=== PATIENT | male | born 1960 | race Caucasian/White ===

== ENCOUNTER 2025-10-04 12:30 | Observation (INO) ==
--- NOTE | 2025-10-04 12:53 | Emergency Department Note ---
Impression & Plan Hypertensive emergency, Vertigo ED Provider Note NAME: ANDREA OLIVIA AGE: 65 SEX: M : 1960 ARRIVES VIA: Walk-In INFORMANT: Patient, ED PROVIDER(S): Flaquito Trent DO CHIEF COMPLAINT: Dizziness HPI: The patient is a 65-year-old male who has a history of hypertension who presented to the emergency department for an evaluation of dizziness. The patient's been experiencing dizziness episodes over the course the last week. He denies having any fever. He denies having any neck pain or neck stiffness. The patient has not seen his family doctor for the symptoms. He states currently he is not having very severe symptoms. He states sometimes when it hits him he has difficulty walking and feels though he is off balance. ROS: See above HPI for pertinent positives & negatives. A total of 10 systems reviewed and were otherwise negative. PAST MEDICAL HISTORY: See Below PAST SURGICAL HISTORY: See Below FAMILY HISTORY: See Below SOCIAL HISTORY: See Below HOME MEDICATIONS: See Below ALLERGIES: See Below VITALS: See Below PHYSICAL EXAMINATION: GENERAL: Patient is awake alert in no acute distress patient is resting comfortably and showing no signs of anxiety EYES: The conjunctivae are clear. The pupils are round and reactive. EARS, NOSE, MOUTH AND THROAT: The nose is without any evidence of any deformity. NECK: The neck is nontender and supple. RESPIRATORY: Normal respiratory effort is noted there is no evidence of wheezing rhonchi or rales CARDIOVASCULAR: Regular rate and rhythm noted there no murmurs rubs or gallops normal S1 normal S2. GASTROINTESTINAL: The abdomen is soft. Abdomen is nontender. MUSCULOSKELETAL/EXTREMITIES: There is no evidence of gross deformity full range of motion is noted in the hips and shoulders. SKIN: There is no obvious evidence of any rash. There are no petechiae, pallor or cyanosis noted. NEUROLOGIC: Patient is awake alert and oriented x3 strength is symmetric patellar reflexes are 2+ bilaterally. [id number] was symmetric. The patient does have a slight resting tremor. Speech was clear. There is no facial droop. There was no nystagmus elicited. MEDICAL DECISION MAKING: The patient is a 65-year-old male who presented to the emergency department for dizziness and vertigo. The patient describes symptoms that could be consistent with vertebrobasilar insufficiency or possible posterior circulation TIA. The patient did not have any focal neurologic deficits on my physical exam. He has had no ongoing symptoms for greater than 24 hours so he was not made a stroke alert upon arrival. He was found to have very elevated blood pressure. He was initially treated with IV labetalol in the emergency department. He was then switched to IV nicardipine. The patient's symptoms remained stable. Blood pressure continued to improve while in the emergency department. I discussed the patient's laboratory and radiographic studies with him. Given his findings I discussed his condition with the on-call [facility]. They have agreed to evaluate the patient in the emergency department for further management and disposition. Triage Nursing notes reviewed. Prior medical records reviewed Vital Signs: reviewed and remarkable for elevated blood pressure. Differential diagnosis: Benign positional vertigo, dehydration, hypovolemia, anemia, tumor, infection, hypoglycemia, electrolyte abnormalities, cardiac sources, intracerebral event, toxicologic, neurologic, as well as other pathologies. ER treatment provided: See below Diagnostics interpreted by me: ECG: EKG was obtained in the emergency department. My interpretation is normal sinus rhythm at 64 bpm. There was no ectopy. Anterior Q waves are noted. There was no acute ST segment abnormalities noted. QTc was 422 ms. Cardiac Monitoring: An order was placed for continuous cardiac monitoring. The monitor shows a rate of 66 bpm with sinus rhythm. Laboratory studies: As stated above and show below. Imaging studies: See below. Radiographic imaging was reviewed by myself Consultation(s): I discussed this case with Luci who is on-call for the [facility] group. ED COURSE: Procedures: none Critical Care: I have personally spent greater than 45 minutes of critical care time in the direct management of this patient. This includes bedside care, interpretation of diagnostic studies, and testing, discussion with consultants, patient, and family members, and other required patient management activities. This 45 minutes is in excess of all separately billable procedures. Past Med/Surg History Problem List (Updated 10/04/25 @ 15:07 by Flaquito Trent DO) Vertigo (Acute) Hypertensive emergency (Acute) Hypertension Surgical History H/O colonoscopy 2019 - [facility] - normal findings. S/P tonsillectomy and adenoidectomy age 9 Family History Sister Breast cancer, Onset Age: 75 Father Esophageal cancer Hypertension Mother Hypertension Brother Aplastic anemia mid 70s Denies family history of Ovarian cancer Prostate cancer Myocardial infarction Colorectal cancer Social History Smoking Status: Never smoker Tobacco Type: Smokeless Tobacco (Dip or Chew) Age Started Using Tobacco: 22; Age Quit Using Tobacco: 54; Cigarettes Per Day: no smoking only used to chew tobacco; Second Hand Exposure: No; Do You Dip or Chew Tobacco: No; Hx Alcohol Use: Yes Hx Substance Use: No Preferred Language: Beninese Communication Ability: Effective Visual Impairment: Limited Hearing Ability: Normal Beliefs That Will Affect Care: None marital status: Current Living Situation: Spouse current occupational status: employed current occupation: [employer] Feels Safe at Home: Yes Childhood Exposure to Second-Hand Smoke: Yes caffeine: Yes (coffee regularly) during the past year weight has: remained stable Dental Care, Regularly: Yes Physical Activity Frequency: Daily Seatbelt Use: always Sunscreen Use: Yes Allergies Allergies Allergy/AdvReac Type Severity Reaction Status Date / Time No Known Drug Allergies Allergy Unknown Verified 04/06/25 08:17 Home Meds Previous Rx's Medication Instructions Recorded lisinopril 20 mg tablet 20 mg PO DAILY #90 tabs 01/06/25 Results & Data (ED) Vital Signs Vital Signs - 24 hr 10/04/25 12:30 10/04/25 12:32 10/04/25 12:50 Temperature 36.6 C Temperature Source Temporal Artery Scan Pulse Rate 79 Pulse Rate [Right Finger] 68 68 Pulse Rate from SpO2 Sensor Respiratory Rate 20 18 18 Respiratory Effort / Characteristics Non-Labored Spontaneous Respiratory Depth Normal Respiratory Pattern Regular Blood Pressure 257/131 H Blood Pressure [Right Arm] 250/116 H 215/126 H Blood Pressure Mean 173 Blood Pressure Mean [Right Arm] 160 155 Pulse Oximetry 95 97 97 Oxygen Delivery Method Room Air Room Air Room Air Sepsis Recent Fever Within 48 Hours No Sepsis New/Unexplained Change in Mental Status N/A Sepsis Action Taken by Nursing No Action Required 10/04/25 13:03 10/04/25 13:05 10/04/25 13:09 Temperature Temperature Source Pulse Rate 67 67 68 Pulse Rate [Right Finger] Pulse Rate from SpO2 Sensor 66 Respiratory Rate 11 L Respiratory Effort / Characteristics Respiratory Depth Respiratory Pattern Blood Pressure 250/138 H Blood Pressure [Right Arm] Blood Pressure Mean Blood Pressure Mean [Right Arm] Pulse Oximetry 95 Oxygen Delivery Method Sepsis Recent Fever Within 48 Hours Sepsis New/Unexplained Change in Mental Status Sepsis Action Taken by Nursing 10/04/25 13:09 10/04/25 13:11 10/04/25 13:11 Temperature Temperature Source Pulse Rate 70 Pulse Rate [Right Finger] Pulse Rate from SpO2 Sensor 70 Respiratory Rate 13 Respiratory Effort / Characteristics Respiratory Depth Respiratory Pattern Blood Pressure 207/119 H 207/119 H Blood Pressure [Right Arm] Blood Pressure Mean 165 165 Blood Pressure Mean [Right Arm] Pulse Oximetry 96 Oxygen Delivery Method Sepsis Recent Fever Within 48 Hours Sepsis New/Unexplained Change in Mental Status Sepsis Action Taken by Nursing 10/04/25 13:11 10/04/25 13:11 10/04/25 13:11 Temperature Temperature Source Pulse Rate Pulse Rate [Right Finger] Pulse Rate from SpO2 Sensor Respiratory Rate Respiratory Effort / Characteristics Respiratory Depth Respiratory Pattern Blood Pressure 207/119 H 207/119 H 207/119 H Blood Pressure [Right Arm] Blood Pressure Mean 165 165 165 Blood Pressure Mean [Right Arm] Pulse Oximetry Oxygen Delivery Method Sepsis Recent Fever Within 48 Hours Sepsis New/Unexplained Change in Mental Status Sepsis Action Taken by Nursing 10/04/25 13:16 10/04/25 13:16 10/04/25 13:16 Temperature Temperature Source Pulse Rate Pulse Rate [Right Finger] Pulse Rate from SpO2 Sensor Respiratory Rate Respiratory Effort / Characteristics Respiratory Depth Respiratory Pattern Blood Pressure 215/126 H 215/126 H 215/126 H Blood Pressure [Right Arm] Blood Pressure Mean 167 167 167 Blood Pressure Mean [Right Arm] Pulse Oximetry Oxygen Delivery Method Sepsis Recent Fever Within 48 Hours Sepsis New/Unexplained Change in Mental Status Sepsis Action Taken by Nursing 10/04/25 13:16 10/04/25 13:16 10/04/25 13:18 Temperature Temperature Source Pulse Rate 62 Pulse Rate [Right Finger] Pulse Rate from SpO2 Sensor 60 Respiratory Rate 13 Respiratory Effort / Characteristics Respiratory Depth Respiratory Pattern Blood Pressure 215/126 H 215/126 H Blood Pressure [Right Arm] Blood Pressure Mean 167 167 Blood Pressure Mean [Right Arm] Pulse Oximetry 96 Oxygen Delivery Method Sepsis Recent Fever Within 48 Hours Sepsis New/Unexplained Change in Mental Status Sepsis Action Taken by Nursing 10/04/25 13:21 10/04/25 13:30 10/04/25 13:30 Temperature Temperature Source Pulse Rate 62 61 Pulse Rate [Right Finger] Pulse Rate from SpO2 Sensor 60 61 Respiratory Rate 13 11 L Respiratory Effort / Characteristics Respiratory Depth Respiratory Pattern Blood Pressure 214/134 H Blood Pressure [Right Arm] Blood Pressure Mean 171 Blood Pressure Mean [Right Arm] Pulse Oximetry 94 94 Oxygen Delivery Method Sepsis Recent Fever Within 48 Hours Sepsis New/Unexplained Change in Mental Status Sepsis Action Taken by Nursing 10/04/25 13:30 10/04/25 13:30 10/04/25 13:30 Temperature Temperature Source Pulse Rate Pulse Rate [Right Finger] Pulse Rate from SpO2 Sensor Respiratory Rate Respiratory Effort / Characteristics Respiratory Depth Respiratory Pattern Blood Pressure 214/134 H 214/134 H 214/134 H Blood Pressure [Right Arm] Blood Pressure Mean 171 171 171 Blood Pressure Mean [Right Arm] Pulse Oximetry Oxygen Delivery Method Sepsis Recent Fever Within 48 Hours Sepsis New/Unexplained Change in Mental Status Sepsis Action Taken by Nursing 10/04/25 13:30 10/04/25 13:42 10/04/25 13:51 Temperature Temperature Source Pulse Rate 61 62 Pulse Rate [Right Finger] Pulse Rate from SpO2 Sensor 62 64 Respiratory Rate 14 13 Respiratory Effort / Characteristics Respiratory Depth Respiratory Pattern Blood Pressure 214/134 H Blood Pressure [Right Arm] Blood Pressure Mean 171 Blood Pressure Mean [Right Arm] Pulse Oximetry 95 94 Oxygen Delivery Method Sepsis Recent Fever Within 48 Hours Sepsis New/Unexplained Change in Mental Status Sepsis Action Taken by Nursing 10/04/25 14:00 10/04/25 14:00 10/04/25 14:00 Temperature Temperature Source Pulse Rate Pulse Rate [Right Finger] Pulse Rate from SpO2 Sensor Respiratory Rate Respiratory Effort / Characteristics Respiratory Depth Respiratory Pattern Blood Pressure 218/137 H 218/137 H 218/137 H Blood Pressure [Right Arm] Blood Pressure Mean 178 178 178 Blood Pressure Mean [Right Arm] Pulse Oximetry Oxygen Delivery Method Sepsis Recent Fever Within 48 Hours Sepsis New/Unexplained Change in Mental Status Sepsis Action Taken by Nursing 10/04/25 14:00 10/04/25 14:00 10/04/25 14:00 Temperature Temperature Source Pulse Rate 60 Pulse Rate [Right Finger] Pulse Rate from SpO2 Sensor 60 Respiratory Rate 18 Respiratory Effort / Characteristics Respiratory Depth Respiratory Pattern Blood Pressure 218/137 H 218/137 H Blood Pressure [Right Arm] Blood Pressure Mean 178 178 Blood Pressure Mean [Right Arm] Pulse Oximetry 95 Oxygen Delivery Method Sepsis Recent Fever Within 48 Hours Sepsis New/Unexplained Change in Mental Status Sepsis Action Taken by Nursing 10/04/25 14:30 10/04/25 14:30 10/04/25 14:30 Temperature Temperature Source Pulse Rate 63 Pulse Rate [Right Finger] Pulse Rate from SpO2 Sensor 63 Respiratory Rate 14 Respiratory Effort / Characteristics Respiratory Depth Respiratory Pattern Blood Pressure 249/136 H 249/136 H Blood Pressure [Right Arm] Blood Pressure Mean 168 168 Blood Pressure Mean [Right Arm] Pulse Oximetry 97 Oxygen Delivery Method Sepsis Recent Fever Within 48 Hours Sepsis New/Unexplained Change in Mental Status Sepsis Action Taken by Nursing 10/04/25 14:33 10/04/25 14:33 10/04/25 14:33 Temperature Temperature Source Pulse Rate 66 Pulse Rate [Right Finger] Pulse Rate from SpO2 Sensor Respiratory Rate Respiratory Effort / Characteristics Respiratory Depth Respiratory Pattern Blood Pressure 236/125 H 236/125 H 236/125 H Blood Pressure [Right Arm] Blood Pressure Mean 171 171 Blood Pressure Mean [Right Arm] Pulse Oximetry Oxygen Delivery Method Sepsis Recent Fever Within 48 Hours Sepsis New/Unexplained Change in Mental Status Sepsis Action Taken by Nursing 10/04/25 14:33 10/04/25 14:33 10/04/25 14:33 Temperature Temperature Source Pulse Rate Pulse Rate [Right Finger] Pulse Rate from SpO2 Sensor Respiratory Rate Respiratory Effort / Characteristics Respiratory Depth Respiratory Pattern Blood Pressure 236/125 H 236/125 H 236/125 H Blood Pressure [Right Arm] Blood Pressure Mean 171 171 171 Blood Pressure Mean [Right Arm] Pulse Oximetry Oxygen Delivery Method Sepsis Recent Fever Within 48 Hours Sepsis New/Unexplained Change in Mental Status Sepsis Action Taken by Nursing 10/04/25 14:33 10/04/25 14:42 10/04/25 14:45 Temperature Temperature Source Pulse Rate 64 60 Pulse Rate [Right Finger] Pulse Rate from SpO2 Sensor 66 60 Respiratory Rate 13 13 Respiratory Effort / Characteristics Respiratory Depth Respiratory Pattern Blood Pressure 213/120 H Blood Pressure [Right Arm] Blood Pressure Mean 153 Blood Pressure Mean [Right Arm] Pulse Oximetry 97 98 Oxygen Delivery Method Sepsis Recent Fever Within 48 Hours Sepsis New/Unexplained Change in Mental Status Sepsis Action Taken by Nursing 10/04/25 14:45 10/04/25 14:45 10/04/25 14:45 Temperature Temperature Source Pulse Rate Pulse Rate [Right Finger] Pulse Rate from SpO2 Sensor Respiratory Rate Respiratory Effort / Characteristics Respiratory Depth Respiratory Pattern Blood Pressure 213/120 H 213/120 H 213/120 H Blood Pressure [Right Arm] Blood Pressure Mean 153 153 153 Blood Pressure Mean [Right Arm] Pulse Oximetry Oxygen Delivery Method Sepsis Recent Fever Within 48 Hours Sepsis New/Unexplained Change in Mental Status Sepsis Action Taken by Nursing 10/04/25 14:45 10/04/25 14:45 10/04/25 14:51 Temperature Temperature Source Pulse Rate 59 L 63 Pulse Rate [Right Finger] Pulse Rate from SpO2 Sensor 60 64 Respiratory Rate 13 16 Respiratory Effort / Characteristics Respiratory Depth Respiratory Pattern Blood Pressure 213/120 H Blood Pressure [Right Arm] Blood Pressure Mean 153 Blood Pressure Mean [Right Arm] Pulse Oximetry 96 96 Oxygen Delivery Method Sepsis Recent Fever Within 48 Hours Sepsis New/Unexplained Change in Mental Status Sepsis Action Taken by Nursing 10/04/25 15:00 10/04/25 15:00 10/04/25 15:00 Temperature Temperature Source Pulse Rate 61 Pulse Rate [Right Finger] Pulse Rate from SpO2 Sensor 59 L Respiratory Rate 12 Respiratory Effort / Characteristics Respiratory Depth Respiratory Pattern Blood Pressure 203/112 H 203/112 H Blood Pressure [Right Arm] Blood Pressure Mean 140 140 Blood Pressure Mean [Right Arm] Pulse Oximetry 94 Oxygen Delivery Method Sepsis Recent Fever Within 48 Hours Sepsis New/Unexplained Change in Mental Status Sepsis Action Taken by Nursing 10/04/25 15:00 10/04/25 15:00 10/04/25 15:00 Temperature Temperature Source Pulse Rate Pulse Rate [Right Finger] Pulse Rate from SpO2 Sensor Respiratory Rate Respiratory Effort / Characteristics Respiratory Depth Respiratory Pattern Blood Pressure 203/112 H 203/112 H 203/112 H Blood Pressure [Right Arm] Blood Pressure Mean 140 140 140 Blood Pressure Mean [Right Arm] Pulse Oximetry Oxygen Delivery Method Sepsis Recent Fever Within 48 Hours Sepsis New/Unexplained Change in Mental Status Sepsis Action Taken by Nursing 10/04/25 15:12 10/04/25 15:15 10/04/25 15:15 Temperature Temperature Source Pulse Rate 63 Pulse Rate [Right Finger] Pulse Rate from SpO2 Sensor 63 Respiratory Rate 21 Respiratory Effort / Characteristics Respiratory Depth Respiratory Pattern Blood Pressure 218/119 H 218/119 H Blood Pressure [Right Arm] Blood Pressure Mean 158 158 Blood Pressure Mean [Right Arm] Pulse Oximetry 95 Oxygen Delivery Method Sepsis Recent Fever Within 48 Hours Sepsis New/Unexplained Change in Mental Status Sepsis Action Taken by Nursing 10/04/25 15:15 10/04/25 15:15 10/04/25 15:15 Temperature Temperature Source Pulse Rate Pulse Rate [Right Finger] Pulse Rate from SpO2 Sensor Respiratory Rate Respiratory Effort / Characteristics Respiratory Depth Respiratory Pattern Blood Pressure 218/119 H 218/119 H 218/119 H Blood Pressure [Right Arm] Blood Pressure Mean 158 158 158 Blood Pressure Mean [Right Arm] Pulse Oximetry Oxygen Delivery Method Sepsis Recent Fever Within 48 Hours Sepsis New/Unexplained Change in Mental Status Sepsis Action Taken by Nursing 10/04/25 15:15 10/04/25 16:00 Temperature Temperature Source Pulse Rate 61 Pulse Rate [Right Finger] 66 Pulse Rate from SpO2 Sensor 61 Respiratory Rate 12 18 Respiratory Effort / Characteristics Respiratory Depth Respiratory Pattern Blood Pressure Blood Pressure [Right Arm] 196/111 H Blood Pressure Mean Blood Pressure Mean [Right Arm] 139 Pulse Oximetry 95 95 Oxygen Delivery Method Sepsis Recent Fever Within 48 Hours Sepsis New/Unexplained Change in Mental Status Sepsis Action Taken by [facility] Medications Current Medication List: was personally reviewed by me Laboratory Data Attestation: I reviewed the patient's lab results. 10/04/25 12:56 10/04/25 12:56 Lab Results 10/04/25 10/04/25 Range/Units 12:56 14:04 WBC 6.11 (4.8-10.8) K/ul RBC 4.85 (4.70-6.10) M/uL Hgb 15.7 (14.0-18.0) g/dl Hct 45.3 (42.0-52.0) % MCV 93.4 (80.0-100.0) fL MCH 32.4 (25.0-34.0) pg MCHC 34.7 (32.0-36.0) g/dL RDW Std Deviation 44.9 (36.4-46.3) fL RDW Coeff of Álvaro 13.1 (11.5-14.5) % Plt Count 324 (130-400) K/uL MPV 8.9 L (9.4-12.4) fL Immature Gran % (Auto) 0.2 % Neut % (Auto) 53.9 % Lymph % (Auto) 30.6 % [place] % (Auto) 11.8 % Eos % (Auto) 2.8 % Baso % (Auto) 0.7 % Neut # (Auto) 3.30 (1.40-6.50) K/uL Lymph # (Auto) 1.87 (1.20-3.40) K/uL [place] # (Auto) 0.72 H (0.11-0.59) K/uL Eos # (Auto) 0.17 (0.00-0.50) K/uL Baso # (Auto) 0.04 (0.00-0.20) K/uL Immature Gran # (Auto) 0.01 (0.01-0.20) K/uL PT Cancelled 10.1 INR Cancelled 1.0 APTT Cancelled 26 PTT Ratio Cancelled 1.0 Sodium 141 (136-145) mmol/L Potassium 3.9 (3.5-5.1) mmol/L Chloride 106 (98-107) mmol/L Carbon Dioxide 26 (21-32) mmol/L Anion Gap 9 (3-11) BUN 20 (6-23) mg/dl Creatinine 0.99 (0.6-1.4) mg/dl Est Cr Clr Drug Dosing 95.3 ml/min eGFR 84.01 BUN/Creatinine Ratio 20.2 H (10-20) Glucose 111 H (70-99(Fasting)) mg/dl Calcium 10.2 (8.6-10.3) mg/dl Magnesium 2.3 (1.7-2.4) mg/dl Total Bilirubin 0.4 (0.2-1.0) mg/dl AST 21 (13-39) U/L ALT 26 (7-52) U/L Alkaline Phosphatase 80 (34-104) U/L Troponin I High Sens 12.1 (0-20) pg/ml Total Protein 7.8 (6.0-8.3) gm/dl Albumin 4.7 (3.4-5.0) gm/dl Globulin 3.1 (2.5-4.0) gm/dl Albumin/Globulin Ratio 1.5 (0.9-2) Administered Medications Discontinued Medications Hydralazine HCl (Hydralazine Hcl 20 Mg/Ml Vial) 10 mg IV NOW STA Stop: 10/04/25 15:34 Last Admin: 10/04/25 15:39 Dose: 10 mg Documented By: shira Nicardipine HCl 25 mg/ Sodium (Chloride) 250 mls @ 50 mls/hr IV .Q5H [facility]; Protocol Stop: 11/03/25 14:59 Last Admin: 10/04/25 15:42 Dose: Not Given Documented By: shira Ioversol (Optiray 320 125ml) 112 ml IV ONCE ONE Stop: 10/04/25 14:19 Last Admin: 10/04/25 14:18 Dose: 112 ml Documented By: HERNANDEZ Labetalol HCl (Labetalol Hcl Iv 5 Mg/Ml 20ml) 10 mg IV NOW STA Stop: 10/04/25 12:51 Last Admin: 10/04/25 13:09 Dose: 10 mg Documented By: shira Labetalol HCl (Labetalol Hcl Iv 5 Mg/Ml 20ml) 10 mg IV NOW STA Stop: 10/04/25 14:11 Last Admin: 10/04/25 14:33 Dose: 10 mg Documented By: QGV Imaging Data Attestation: I personally reviewed and interpreted this imaging study as follows: My Impression: 1 view chest x-ray was obtained in the emergency department. My interpretation is no free air or definite infiltrate, final report below. Radiologist's Impression: Chest X-Ray 10/04/25 12:50 XR chest 1V portable CLINICAL HISTORY: neuro deficit, acute stroke suspected COMPARISON STUDY: None FINDINGS: Heart size and pulmonary vasculature are normal. No consolidation or pleural effusion. No pneumothorax. IMPRESSION: No acute findings. ACT 112: Negative or not required by law. Electronically signed by: Bob Nath M.D. 10/04/2025 1:[address] 10/04/25 12:50 CT SCAN OF THE BRAIN WITHOUT IV CONTRAST CLINICAL HISTORY: There are deficit. Suspected acute stroke. COMPARISON STUDY: None TECHNIQUE: Unenhanced axial CT scan of the brain was performed from the vertex to the skull base. A dose lowering technique was utilized adhering to the principles of ALARA. CT DOSE: FINDINGS: No intra or extra-axial mass lesions are visualized. There is no CT evidence of acute cortical infarction. There are no noncontrast findings to indicate dural venous sinus thrombosis. There are no intra or extra-axial hemorrhages. There is no hydrocephalus. No orbital lesions are visualized. The paranasal sinuses appear clear. There are no suspicious calvarial lesions. IMPRESSION: No acute intracranial findings. ACT 112: Negative or not required by law. Electronically signed by: Edwin Blum M.D. 10/04/2025 2:42 PM Head CTA 10/04/25 12:50 CTA ANGIOGRAPHY OF THE HEAD CLINICAL HISTORY: neuro deficit, acute stroke suspected COMPARISON STUDY: No previous studies for comparison. TECHNIQUE: Helical axial images of the head were obtained following uneventful intravenous administration of 112 cc of Optiray. Sagittal and coronal reconstructions were viewed as well as maximal intensity projections on an independent 3-D workstation. Automated exposure control was utilized for the study. A dose lowering technique was utilized adhering to the principles of ALARA. FINDINGS: Please note that the head CT will be reported separately. There is no acute intracranial hemorrhage, midline shift or mass effect. Jugular system is unremarkable. Basal cisterns are patent. The bilateral M1, M2, A1 and A2 segments are patent. There is no large vessel occlusion. There is no intracranial aneurysm. The right vertebral artery ends in the posterior inferior cerebellar artery. The basilar artery is patent. The posterior cerebral arteries are patent. IMPRESSION: No large vessel occlusion. No intracranial aneurysm. ACT 112: Negative or not required by law. Electronically signed by: Brody Lee M.D. 10/04/2025 2:48 PM Neck CTA 10/04/25 12:50 CT angio neck with con CLINICAL HISTORY: neuro deficit, acute stroke suspected. TECHNIQUE: Following the IV administration of 112 of Optiray, CT angiogram of the neck was performed from the aortic arch to the skull base. Images are reviewed in the axial, sagittal, and coronal planes. 3-D MIPS images are created and assessed. IV contrast was administered without complication. All measurements were calculated based on NASCET criteria. A dose lowering technique was utilized adhering to the principles of ALARA. CT DOSE: 1199.93 mGy.cm COMPARISON STUDY: None FINDINGS: Left vertebral artery is dominant and the right vertebral artery terminates in PICA, anatomic variant. There are mild carotid bulb calcifications. No significant narrowing or occlusion seen at the common or internal carotid or vertebral arteries bilaterally. IMPRESSION: No significant arterial narrowing or occlusion seen at the neck. ACT 112: Negative or not required by law. The above report was generated using voice recognition software. It may contain grammatical, syntax or spelling errors. Electronically signed by: Bob Nath M.D. 10/04/2025 2:42 PM Discharge Plan Visit Data Chief Complaint: Vertigo Stated Complaint: DIZZY, BALANCE, LIGHT HEADED ED Provider: Flaquito Trent Discharge Problem: Hypertensive emergency, Vertigo Patient Disposition: Being Evaluated by Hospitalist Condition: Fair Forms Stand Alone Forms: My [facility] Prescriptions Prescriptions: No Action lisinopril 20 mg tablet 20 mg PO DAILY Qty: 90 3RF Referrals Referrals: Chrystal Yang DO [Primary Care Provider] -
--- NOTE | 2025-10-04 13:06 | XRay Report ---
XR chest 1V portable CLINICAL HISTORY: neuro deficit, acute stroke suspected COMPARISON STUDY: None FINDINGS: Heart size and pulmonary vasculature are normal. No consolidation or pleural effusion. No p neumothorax. IMPRESSION: No acute findings. ACT 112: Negative or not required by law. Electronically signed by: Bob Nath M.D. 10/04/2025 1:05 PM
[2025-10-04] MEDS: LABETALOL HCL IV 5 MG/ML 20ML IV STA ×2 (13:09→14:33)
[2025-10-04 13:16] LABS: Hematocrit (blood only) 45.3 % (42.0-52.0); Hemoglobin 15.7 g/dl (14.0-18.0); Immature Granulocytes # (auto) 0.01 K/uL (0.01-0.20); Immature Granulocytes % (auto) 0.2 %; Mean Corpuscular Hemoglobin 32.4 pg (25.0-34.0); Mean Corpuscular Volume 93.4 fL (80.0-100.0); Platelet Count 324 K/uL (130-400); RDW Standard Deviation 44.9 fL (36.4-46.3); Red Blood Count 4.85 M/uL (4.70-6.10); White Blood Count 6.11 K/ul (4.8-10.8)
[2025-10-04 13:56] LABS: Albumin Level 4.7 gm/dl (3.4-5.0); Anion Gap 9.0 (3-11); Bilirubin,Total 0.4 mg/dl (0.2-1.0); Calcium 10.2 mg/dl (8.6-10.3); Carbon Dioxide 26.0 mmol/L (21-32); Chloride 106.0 mmol/L (98-107); Magnesium 2.3 mg/dl (1.7-2.4); Potassium 3.9 mmol/L (3.5-5.1); Sodium 141.0 mmol/L (136-145)
[2025-10-04 14:02] LABS: Alanine Aminotransferase 26.0 U/L (7-52); Albumin Globulin Ratio 1.5 (0.9-2); Alkaline Phosphatase 80.0 U/L (34-104); Blood Urea Nitrogen 20.0 mg/dl (6-23); Creatinine Clr Calc Pharmacy 95.3 ml/min; Globulin 3.1 gm/dl (2.5-4.0); Glucose 111.0 mg/dl (70-99(Fasting)); Total Protein 7.8 gm/dl (6.0-8.3)
[2025-10-04] MEDS: OPTIRAY 320 125ml IV ONE (14:18)
--- NOTE | 2025-10-04 14:44 | CT Scan Report ---
CT SCAN OF THE BRAIN WITHOUT IV CONTRAST CLINICAL HISTORY: There are deficit. Suspected acute stroke. COMPARISON STUDY: None TECHNIQUE: Unenhanced axial CT scan of the brain was performed from the vertex to the skull base. A dose lowering technique was utilized adhering to the principles of ALARA. CT DOSE: FINDINGS: No intra or extra-axial mass lesions are visualized. There is no CT evidence of acute cortical infarc tion. There are no noncontrast findings to indicate dural venous sinus thrombosis. There are no intra or extra-axial hemorrhages. There is no hydrocephalus. No orbital lesions are visualized. The paranasal sinuses appear clear. There are no suspicious calvarial lesions. IMPRESSION: No acute intracranial findings. ACT 112: Negative or not required by law. Electronically signed by: Edwin Blum M.D. 10/04/2025 2:42 PM
--- NOTE | 2025-10-04 14:44 | CT Scan Report ---
CT angio neck with con CLINICAL HISTORY: neuro deficit, acute stroke suspected. TECHNIQUE: Following the IV administration of 112 of Optiray, CT angiogram of the neck was performed from the aortic arch to the skull base. Images are reviewed in the axial, sagittal, and coronal plane s. 3-D MIPS images are created and assessed. IV contrast was administered without complication. All m easurements were calculated based on NASCET criteria. A dose lowering technique was utilized adherin g to the principles of ALARA. CT DOSE: 1199.93 mGy.cm COMPARISON STUDY: None FINDINGS: Left vertebral artery is dominant and the right vertebral artery terminates in PICA, anatom ic variant. There are mild carotid bulb calcifications. No significant narrowing or occlusion seen at the common or internal carotid or vertebral arteries bilaterally. IMPRESSION: No significant arterial narrowing or occlusion seen at the neck. ACT 112: Negative or not required by law. The above report was generated using voice recognition software. It may contain grammatical, syntax o r spelling errors. Electronically signed by: Bob Nath M.D. 10/04/2025 2:42 PM
--- NOTE | 2025-10-04 14:50 | CT Scan Report ---
CTA ANGIOGRAPHY OF THE HEAD CLINICAL HISTORY: neuro deficit, acute stroke suspected COMPARISON STUDY: No previous studies for comparison. TECHNIQUE: Helical axial images of the head were obtained following uneventful intravenous administr ation of 112 cc of Optiray. Sagittal and coronal reconstructions were viewed as well as maximal inten sity projections on an independent 3-D workstation. Automated exposure control was utilized for the study. A dose lowering technique was utilized adhering to the principles of ALARA. FINDINGS: Please note that the head CT will be reported separately. There is no acute intracranial he morrhage, midline shift or mass effect. Jugular system is unremarkable. Basal cisterns are patent. Th e bilateral M1, M2, A1 and A2 segments are patent. There is no large vessel occlusion. There is no in tracranial aneurysm. The right vertebral artery ends in the posterior inferior cerebellar artery. The basilar artery is patent. The posterior cerebral arteries are patent. IMPRESSION: No large vessel occlusion. No intracranial aneurysm. ACT 112: Negative or not required by law. Electronically signed by: Brody Lee M.D. 10/04/2025 2:48 PM
[2025-10-04 14:55] LABS: INR 1.0 (0.9-1.1); Partial Thromboplastin Time 26 Seconds (21-31); Prothrombin Time 10.1 Seconds (9.0-12.0)
[2025-10-04] MEDS ORDERED: POLYETHYLENE (MIRALAX) 17 GM PACK PO PRN (15:36)
[2025-10-04] MEDS ORDERED: ONDANSETRON INJ 2 MG/ML 2 ML VIAL IV PRN (15:36)
[2025-10-04] MEDS ORDERED: ACETAMINOPHEN 325 MG TAB PO PRN (15:36)
--- NOTE | 2025-10-04 15:39 | History & Physical Report ---
Date of Service October 04, 2025 Assessment & Plan (1) Hypertensive emergency: Plan This is a 65 year old gentleman with past medical history of hypertension who presented to the ED on 10/04/25 for dizziness. While in the ED his BP was profoundly elevated at 236/125. CBC, PT/INR, CMP, Trop all WNL. CXR, head CT, Head/Neck CTA all negative. He was given labetalol x 2 in the ED with minimal improvement in BP. #Hypertensive emergency w/ dizziness likely symptom related to HTN; pt w/ FHx of HTN CBC/CMP/Trop all WNL. Head CT; CXR: Head/Neck CTA all negative. Start Hydralazine 25mg PO QID w/ IV Hydralazine 10mg q4h for SBP > 190 or DBP > 100. Monitor BP closely. Obtain renal artery US & plasma metanephrine to evaluate for secondary causes of hypertension in the setting of + FHx. Hold home Lisinopril, anticipate change in antihypertensives on dc AM CBC/BMP DVT prophylaxis: Lovenox Code: full case was discussed w/ Dr. Hernandez at time of admission. updated at bedside 10/04. History of Present Illness Primary Care Provider: Chrystal Yang DO This is a 65 year old gentleman with past medical history of hypertension who presented to the ED on 10/04/25 for dizziness. Matias was seen & examined with his at bedside this afternoon. Matias reports that for about the last 7 days he has had intermittent episodes of dizziness. He denies any LOC. He states that today he was at work where he had a 30 second dizzy spell and felt he should come to get it looked at. He does not routinely check his BP at home but when he does his numbers are typically in the 160s/90s. He states he has a family history of high blood pressure. He reports he is compliant with his lisinopril. Presently he was not having any dizziness. He denied CP, SOB, cough, fever, chills, abdominal pain, N/V, changes in bowels/bladder, or LE edema. While in the ED his BP was profoundly elevated at 236/125. CBC, PT/INR, CMP, Trop all WNL. CXR, head CT, Head/Neck CTA all negative. He was given labetalol x 2 in the ED with minimal improvement in BP. Code discussion did take place and he does confirm that he is a full code. Allergies Allergy/AdvReac Type Severity Reaction Status Date / Time No Known Drug Allergies Allergy Unknown Verified 04/06/25 08:17 Home Medications Medication Instructions Recorded Confirmed Type lisinopril 20 mg tablet 20 mg PO DAILY #90 tabs 01/06/25 10/04/25 Rx Past Med/Surg History Problem List (Updated 10/04/25 @ 15:07 by Flaquito Trent DO) Vertigo (Acute) Hypertensive emergency (Acute) Hypertension Surgical History H/O colonoscopy 2019 - [facility] - normal findings. S/P tonsillectomy and adenoidectomy age 9 Family History Sister Breast cancer, Onset Age: 75 Father Esophageal cancer Hypertension Mother Hypertension Brother Aplastic anemia mid 70s Denies family history of Ovarian cancer Prostate cancer Myocardial infarction Colorectal cancer Social History Smoking Status: Never smoker Tobacco Type: Smokeless Tobacco (Dip or Chew) Age Started Using Tobacco: 22; Age Quit Using Tobacco: 54; Cigarettes Per Day: no smoking only used to chew tobacco; Second Hand Exposure: No; Do You Dip or Chew Tobacco: No; Hx Alcohol Use: Yes Alcohol type: beer Hx Substance Use: No Preferred Language: Czech Communication Ability: Effective Visual Impairment: Limited Hearing Ability: Normal Barrel Repairer Required: No Beliefs That Will Affect Care: None marital status: Current Living Situation: Spouse current occupational status: employed current occupation: [employer] Other Information That Helps Us Care for You: Yes Feels Safe at Home: Yes Safety Concerns: Feels Safe At This Time Childhood Exposure to Second-Hand Smoke: Yes caffeine: Yes (coffee regularly) during the past year weight has: remained stable Dental Care, Regularly: Yes Physical Activity Frequency: Daily Seatbelt Use: always Sunscreen Use: Yes Physical Exam Physical Exam: General: NAD, VS: BP 196/111; P66; R18; T36.6C Resp: normal respiratory effort, lungs clear to auscultation CV: RRR, no murmur Abd: normal bowel sounds, non tender Extremities: Moves all extremities, no edema Neuro: A&O x3, strength 5/5 in all extremities. Skin: intact, no lesions noted Results & Data Results & Data Vital Signs (Past 12 Hours) Vital Signs Temp Pulse Pulse Resp BP BP Pulse Ox 10/04/25 15:15 61 12 95 10/04/25 15:15 218/119 H 10/04/25 15:15 218/119 H 10/04/25 15:15 218/119 H 10/04/25 15:15 218/119 H 10/04/25 15:15 218/119 H 10/04/25 15:12 63 21 95 10/04/25 15:00 203/112 H 10/04/25 15:00 203/112 H 10/04/25 15:00 203/112 H 10/04/25 15:00 203/112 H 10/04/25 15:00 203/112 H 10/04/25 15:00 61 12 94 10/04/25 14:51 63 16 96 10/04/25 14:45 59 L 13 96 10/04/25 14:45 213/120 H 10/04/25 14:45 213/120 H 10/04/25 14:45 213/120 H 10/04/25 14:45 213/120 H 10/04/25 14:45 213/120 H 10/04/25 14:42 60 13 98 10/04/25 14:33 64 13 97 10/04/25 14:33 236/125 H 10/04/25 14:33 236/125 H 10/04/25 14:33 236/125 H 10/04/25 14:33 236/125 H 10/04/25 14:33 236/125 H 10/04/25 14:33 66 236/125 H 10/04/25 14:30 249/136 H 10/04/25 14:30 249/136 H 10/04/25 14:30 63 14 97 10/04/25 14:00 218/137 H 10/04/25 14:00 218/137 H 10/04/25 14:00 60 18 95 10/04/25 14:00 218/137 H 10/04/25 14:00 218/137 H 10/04/25 14:00 218/137 H 10/04/25 13:51 62 13 94 10/04/25 13:42 61 14 95 10/04/25 13:30 214/134 H 10/04/25 13:30 214/134 H 10/04/25 13:30 214/134 H 10/04/25 13:30 214/134 H 10/04/25 13:30 214/134 H 10/04/25 13:30 61 11 L 94 10/04/25 13:21 62 13 94 10/04/25 13:18 62 13 96 10/04/25 13:16 215/126 H 10/04/25 13:16 215/126 H 10/04/25 13:16 215/126 H 10/04/25 13:16 215/126 H 10/04/25 13:16 215/126 H 10/04/25 13:11 207/119 H 10/04/25 13:11 207/119 H 10/04/25 13:11 207/119 H 10/04/25 13:11 207/119 H 10/04/25 13:11 207/119 H 10/04/25 13:09 70 13 96 10/04/25 13:09 68 250/138 H 10/04/25 13:05 67 10/04/25 13:03 67 11 L 95 10/04/25 12:50 68 18 215/126 H 97 10/04/25 12:32 36.6 C 79 18 257/131 H 97 10/04/25 12:30 68 20 250/116 H 95 O2 Del Method 10/04/25 15:15 10/04/25 15:15 10/04/25 15:15 10/04/25 15:15 10/04/25 15:15 10/04/25 15:15 10/04/25 15:12 10/04/25 15:00 10/04/25 15:00 10/04/25 15:00 10/04/25 15:00 10/04/25 15:00 10/04/25 15:00 10/04/25 14:51 10/04/25 14:45 10/04/25 14:45 10/04/25 14:45 10/04/25 14:45 10/04/25 14:45 10/04/25 14:45 10/04/25 14:42 10/04/25 14:33 10/04/25 14:33 10/04/25 14:33 10/04/25 14:33 10/04/25 14:33 10/04/25 14:33 10/04/25 14:33 10/04/25 14:30 10/04/25 14:30 10/04/25 14:30 10/04/25 14:00 10/04/25 14:00 10/04/25 14:00 10/04/25 14:00 10/04/25 14:00 10/04/25 14:00 10/04/25 13:51 10/04/25 13:42 10/04/25 13:30 10/04/25 13:30 10/04/25 13:30 10/04/25 13:30 10/04/25 13:30 10/04/25 13:30 10/04/25 13:21 10/04/25 13:18 10/04/25 13:16 10/04/25 13:16 10/04/25 13:16 10/04/25 13:16 10/04/25 13:16 10/04/25 13:11 10/04/25 13:11 10/04/25 13:11 10/04/25 13:11 10/04/25 13:11 10/04/25 13:09 10/04/25 13:09 10/04/25 13:05 10/04/25 13:03 10/04/25 12:50 Room Air 10/04/25 12:32 Room Air 10/04/25 12:30 Room Air Code Status & VTE Plan VTE Prophylaxis Plan VTE Prophylaxis will be ordered: Yes Supervising Physician Co-Signing Physician Notes The patient was seen by me. The chart was reviewed. Case discussed with KATI Christine. Agree with assessment and plan PG Care Time/CCT Total # of Minutes Spent Total Time Spent with Patient: Total time spent is greater than 50% in coordination of care (as documented) at patient's floor/unit and/or counseling patient: Coding Level of Care Code 93213 INT INP/OBS CARE 3/75MIN Diagnoses Hypertensive emergency I16.1
[2025-10-04] MEDS: STAT IV Infusion **Titration per Protocol STA (17:10)
--- NOTE | 2025-10-04 18:35 | Ultrasound Report ---
Clinical history: Hypertension Technique: Doppler sonography was performed of the renal arteries Findings: There is no definite sign of renal artery stenosis. Peak systolic velocity within the right renal artery is 173 cm/s and within the left renal artery is 106 cm/s. The visualized renal veins appear patent. Impression: No definite sign of renal artery stenosis Electronically signed by Dipak Nicole 10-04-2025 6:35 PM
[2025-10-04] MEDS ORDERED: INFLUENZA VACC TS2025-26(65y+)/PF (IIV3) 0.5mL Syr IM ONE (18:40)
[2025-10-04] MEDS: ENOXAPARIN INJ 40 MG/0.4 ML SYR SQ SCH (20:15)
[2025-10-04] MEDS: MELATONIN 3 MG TAB PO PRN (20:22)
[2025-10-05 07:25] VITALS: BP 167/78; RESP 16; TEMP 98.2; O2SAT 97
--- NOTE | 2025-10-05 09:45 | Discharge Summary ---
Discharge Summary Date of Service October 05, 2025 Principal Dx & Hospital Course #1 = Principal Diagnosis (1) Hypertensive emergency: Plan This is a 65 year old gentleman with past medical history of hypertension who presented to the ED on 10/04/25 for dizziness. While in the ED his BP was profoundly elevated at 236/125. CBC, PT/INR, CMP, Trop all WNL. CXR, head CT, Head/Neck CTA all negative. He was given labetalol x 2 in the ED with minimal improvement in BP. #Hypertensive emergency w/ dizziness likely symptom related to HTN; pt w/ FHx of HTN CBC/CMP/Trop all WNL; Head CT; CXR: Head/Neck CTA all negative. Renal artery US neg for stenosis; plasma metanephrines pending. Hydralazine has been effective in controlling bp. Continue 50mg TID on discharge & follow up with PCP for adjustments of medication. (stop Lisinopril on dc) Monitor BP closely at home & report findings to PCP if > 190/100 Notes For Next Care Provider switched from Lisinopril to Hydralazine 50mg TID. Admission HPI Per Admitting Provider This is a 65 year old gentleman with past medical history of hypertension who presented to the ED on 10/04/25 for dizziness. Matias was seen & examined with his at bedside this afternoon. Matias reports that for about the last 7 days he has had intermittent episodes of dizziness. He denies any LOC. He states that today he was at work where he had a 30 second dizzy spell and felt he should come to get it looked at. He does not routinely check his BP at home but when he does his numbers are typically in the 160s/90s. He states he has a family history of high blood pressure. He reports he is compliant with his lisinopril. Presently he was not having any dizziness. He denied CP, SOB, cough, fever, chills, abdominal pain, N/V, changes in bowels/bladder, or LE edema. While in the ED his BP was profoundly elevated at 236/125. CBC, PT/INR, CMP, Trop all WNL. CXR, head CT, Head/Neck CTA all negative. He was given labetalol x 2 in the ED with minimal improvement in BP. Code discussion did take place and he does confirm that he is a full code. Discharge Exam General: NAD, VS: 167/78; P71; T36.8C; R16 Resp: normal respiratory effort Extremities: Moves all extremities, no edema Neuro: A&O x, Skin: intact, no lesions noted Discharge Plan Discharge Items Patient Disposition: Home - Self-Care Reason For Visit: DIZZINESS Discharge Diagnosis: Hypertensive Emergency Condition on Discharge: Fair Activity: Resume your previous activity Non-emergency contact: Primary Care Provider Call non-emergency contact if: you have any medication questions and your symptoms worsen Follow-up/Referrals: Chrystal Yang DO [Primary Care Provider] - 10/14/25 9:20 am Diet: Heart Healthy Addtl Attending Provider Instructions: Mr. Carvalho, You were recently hospitalized secondary to a feeling of dizziness. Your blood pressure was found to be elevated and you were treated with anti-hypertensive agents with appropriate response in your blood pressure. Medications: Your medication list has been reviewed and reconciled upon discharge to ensure accuracy and continuity of care. An updated list of all your medications is included with your hospital discharge paperwork. Please review this list closely, and make note of any changes. Please stop taking your Lisinopril. Your new blood pressure medication is Hydralazine 50mg. Please take this three times daily with your first dose being this afternoon, 10/05. Please routinely check your blood pressure at home and notify your PCP if it is consistently greater than 190/100. Take your medications as instructed; do not skip a dose of your medicines. Make sure all of your doctors know every medicine you are taking (including gsya-mos-iidggxe medicines, vitamins, and supplements). Call your primary care provider before taking any new medicines (including over- the-counter medicines, vitamins, and supplements), because some of these may interact with your current medications, or may make your symptoms worse. Tell your primary care provider if you cannot afford your medications. Activity: You can do normal everyday activities as your body allows. Take rest breaks if you feel tired. Do not overexert. Stop activity if you have pain, shortness of breath or feel dizzy. Follow-up appointments: Make an appointment with your primary care physician within one week of discharge. A copy of this summary will be sent to them. Every time you see your primary care physician, or any other doctor, bring your medication list, and a list of questions. CONTACT YOUR PRIMARY CARE PROVIDER if you experience any of the following: Shortness of breath or difficulty breathing Fevers or chills Feeling tired with normal activity or experiencing dizziness or fainting Difficulty following your treatment plan, or difficulty taking medications CALL 911 OR GO TO THE EMERGENCY DEPARTMENT if you experience any of the following: Severe abdominal pain or nausea/vomiting Severe chest pain, or chest pain that radiates (moves) to your jaw or arm Sudden, severe shortness of breath or difficulty breathing Thank you for allowing us to participate in your care. Pending Studies at Discharge: No Stand-Alone Forms: My [facility] Fresh Dish, Smoking Cessation Medications and DC Order Prescriptions: New hydralazine 50 mg Tablet 50 mg PO TID Qty: 90 0RF Discontinued lisinopril 20 mg tablet 20 mg PO DAILY Qty: 90 3RF Discharge Orders: Discharge Order (Routine); Ordered 10/05/25 Ordered By: Mary Wilson Admission Data Admit Date/Time: 10/04/25 15:36 Attending Provider: Juan Diego Hernandez Admit Provider: Juan Diego Hernandez Primary Care Provider: Chrystal Yang Other Providers: Juan Diego Hernandez Other Interventions: Discharge Summary Assessment (RN) Last Done: 10/05/25 09:48 Hospital Stay Data Consultations 10/04/25 15:16 ED Decision to Admit Stat Diagnostic Imagining Performed 10/04/25 12:50 CT angio head w con Stat CT angio neck with con Stat CT head/brain wo con Stat 10/04/25 15:35 US duplex renal art/vein BI Routine Pending Results Patient Have Any Pending Studies at Discharge: No Discharge Instructions Given to Patient (Per Discharging Provider) Mr. Carvalho, Ender were recently hospitalized secondary to a feeling of dizziness. Your blood pressure was found to be elevated and you were treated with anti-hypertensive agents with appropriate response in your blood pressure. Medications: Your medication list has been reviewed and reconciled upon discharge to ensure accuracy and continuity of care. An updated list of all your medications is included with your hospital discharge paperwork. Please review this list closely, and make note of any changes. Please stop taking your Lisinopril. Your new blood pressure medication is Hydralazine 50mg. Please take this three times daily with your first dose being this afternoon, 10/05. Please routinely check your blood pressure at home and notify your PCP if it is consistently greater than 190/100. Take your medications as instructed; do not skip a dose of your medicines. Make sure all of your doctors know every medicine you are taking (including jhmb-dia-xbtsdoe medicines, vitamins, and supplements). Call your primary care provider before taking any new medicines (including over- the-counter medicines, vitamins, and supplements), because some of these may interact with your current medications, or may make your symptoms worse. Tell your primary care provider if you cannot afford your medications. Activity: You can do normal everyday activities as your body allows. Take rest breaks if you feel tired. Do not overexert. Stop activity if you have pain, shortness of breath or feel dizzy. Follow-up appointments: Make an appointment with your primary care physician within one week of discharge. A copy of this summary will be sent to them. Every time you see your primary care physician, or any other doctor, bring your medication list, and a list of questions. CONTACT YOUR PRIMARY CARE PROVIDER if you experience any of the following: Shortness of breath or difficulty breathing Fevers or chills Feeling tired with normal activity or experiencing dizziness or fainting Difficulty following your treatment plan, or difficulty taking medications CALL 911 OR GO TO THE EMERGENCY DEPARTMENT if you experience any of the following: Severe abdominal pain or nausea/vomiting Severe chest pain, or chest pain that radiates (moves) to your jaw or arm Sudden, severe shortness of breath or difficulty breathing Thank you for allowing us to participate in your care. Supervising Physician Co-Signing Physician Notes The patient was not seen by me. The chart was reviewed. Case discussed with KATI Christine. Agree with assessment and plan Total Time Total Time Spent Total Time Spent (In Minutes): 35 Total Time Includes: Examination of the Patient, Discharge Planning and Medication Reconciliation Coding Level of Care Code 88439 INP/OBS DISCH >30 MIN Diagnoses Hypertensive emergency I16.1
[2025-10-05 09:50] VITALS: PULSE 71
--- NOTE | 2025-10-07 16:44 | Electrocardiogram Report ---
Test Reason : Blood Pressure : */* mmHG Vent. Rate : 64 BPM Atrial Rate : 64 BPM P-R Int : 176 ms QRS Dur : 88 ms QT Int : 410 ms P-R-T Axes : 26 6 35 degrees QTcB Int : 422 ms Normal sinus rhythm Septal infarct , age undetermined Abnormal ECG No previous ECGs available Confirmed by Jose David Donahue ([id number]) on 10/07/2025 4:43:30 PM Referred By: REFERRED SELF Confirmed By: Jose David Donahue
== END 2025-10-05 10:32 | disposition home or self-care (01) | DRG 305 ==
LOC: SUATTDRO → ED 12:30 → INTOOBSV 15:36 → 2S 15:36